=== PATIENT | female | born 1985 | race Caucasian/White ===

== ENCOUNTER 2018-07-06 12:04 | Emergency (ER) | payer OTHER ==
--- NOTE | 2018-07-06 12:16 | ED.PDOC ---
History of Present Illness - General Chief Complaint: Upper Extremity Injury Stated Complaint: pain index finger left Time Seen by Provider: 07/06/18 12:15 Source: patient Exam Limitations: no limitations - History of Present Illness Initial Comments: Emili Williamson 32 y/o female stated that she was pushing table and accidentally slammed left index finger between table.Noted pain /swelling left index er after the incident and pain bending finger feels tight. Occurred: just prior to arrival Pain - Upper Extremity: moderate: Hand, left - index finger Method of Injury: other - see hpi Improving Factors: rest Worsening Factors: movement Allergies/Adverse Reactions: Allergies Barium Allergy (Verified 09/26/14 15:26) Home Medications: Ambulatory Orders Clonazepam 1 mg PO BID 09/26/14 Gabapentin 600 mg PO QID 09/26/14 Mesalamine [Asacol] 800 mg PO TID 09/26/14 tiZANidine [Zanaflex] 4 mg PO TID 09/26/14 Tramadol HCl 50 mg PO TID PRN #14 tab 07/06/18 Review of Systems - Review of Systems Constitutional: States: no symptoms reported EENTM: States: no symptoms reported Respiratory: States: no symptoms reported Cardiology: States: no symptoms reported Gastrointestinal/Abdominal: States: no symptoms reported Genitourinary: States: no symptoms reported Musculoskeletal: States: see HPI Skin: States: no symptoms reported Neurological: States: no symptoms reported Past Medical History (General) - Patient Medical History Hx Stroke: No Hx of COPD: No Hx Hypertension: No Hx Diabetes: No Hx Other PMH: Yes - Crohns disease,RSD,Thoracic outlet syndome Surgical History: cholecystectomy, tonsillectomy, other - rib resection,skin grafting - Vaccination History Hx Influenza Vaccination: No - Social History Hx Tobacco Use: Yes Years Tobacco Use: 3 Cigarettes Packs Per Day: 10 Hx Chewing Tobacco Use: No Hx Alcohol Use: No Hx Physical Abuse: No Hx Emotional Abuse: No - Activities of Daily Living Patient Lives Alone: No Family Medical History - Family History Mother Family History: No Known Living Status: Still Living Hx Family Hypertension: Yes Hx Family Stroke: Yes - mom Hx Family;Other: Rheumatoid arthritis Physical Exam - Physical Exam General Appearance: Alert, Comfortable, No apparent distress Eyes, Ears, Nose, Throat Exam: normal ENT inspection Neck: non-tender, full range of motion, normal inspection Cardiovascular/Respiratory: regular rate, rhythm, no M/R/G, normal peripheral pulses, normal breath sounds Abdominal Exam: non-tender, no organomegaly Back Exam: no CVA tenderness, no vertebral tenderness Shoulder Exam: no evidence of injury Elbow/Forearm Exam: no evidence of injury Wrist Exam: no evidence of injury Hand Exam: bone tenderness - left index finger, limited ROM - left index finger , soft tissue tenderness - left index finger, swelling - left index finger Neuro/Tendon: normal sensation, normal motor functions, normal tendon functions , responds to pain Mental Status: alert, oriented x 3 Skin Exam: normal color, warm/dry Progress - Progress Progress: 07/06/18 12:36 Vital Signs - 8 hr 07/06/18 12:17 Temperature 97.9 F Pulse Rate [ 106 H montior] Respiratory 20 Rate Blood Pressure 151/86 [ra] O2 Sat by Pulse 97 Oximetry - EKG/XRAY/CT XRAY: index finger -no fracture Departure - Departure Clinical Impression: Swelling of index finger Contusion of index finger without damage to nail Qualifiers: Encounter type: initial encounter Laterality: left Qualified Code(s): S60.022A - Contusion of left index finger without damage to nail, initial encounter Time of Disposition: 13:09 Disposition: Discharge to Home or Self Care Departure Forms: ED Discharge - Pt. Copy, Patient Portal Self Enrollment Instructions: Contusion (DC) Prescriptions: Tramadol HCl 50 mg PO TID PRN #14 tab PRN Reason: Pain Home Medications: Ambulatory Orders Clonazepam 1 mg PO BID 09/26/14 Gabapentin 600 mg PO QID 09/26/14 Mesalamine [Asacol] 800 mg PO TID 09/26/14 tiZANidine [Zanaflex] 4 mg PO TID 09/26/14 Tramadol HCl 50 mg PO TID PRN #14 tab 07/06/18 Additional Instructions: Continue with ice pack 10 minute 3 x a day during waking hours only for 3 days
[2018-07-06 12:21] VITALS: TEMP 97.9; O2SAT 97
--- NOTE | 2018-07-06 13:07 | RAD ---
EXAM DESCRIPTION: Fingers,Left CLINICAL HISTORY: 32 years Female, LEFT INDEX FINGER PAIN COMPARISON: None. FINDINGS: Three views of the left index finger show soft tissue swelling proximally without acute fracture or malalignment. No radiopaque foreign body or soft tissue gas. IMPRESSION: Soft tissue swelling, otherwise unremarkable exam. Electronically signed by: Timoteo Miller MD 07/06/2018 1:05 PM CDT
[2018-07-06 13:24] VITALS: BP 141/82
== END 2018-07-06 13:24 | disposition home or self-care (01) ==
LOC: ER 12:04
DX: S60.022A Contusion of left index finger without damage to nail, initial encounter (principal); W23.0XXA Caught, crushed, jammed, or pinched between moving objects, initial encounter; Z87.891 Personal history of nicotine dependence; Z88.8 Allergy status to other drugs, medicaments and biological substances; Y99.0 Civilian activity done for income or pay; Y92.69 Other specified industrial and construction area as the place of occurrence of the external cause

== ENCOUNTER → 2019-04-10 | Outpatient (CLI) | payer BC | LOC: LAB.O 12:24 | PROVIDERS: ATTEND Obstetrics & Gynecology | DX: E28.2 Polycystic ovarian syndrome (principal) ==

== ENCOUNTER → 2019-05-14 | Outpatient (CLI) | payer BC | LOC: LAB.O 11:09 | PROVIDERS: ATTEND Obstetrics & Gynecology | DX: N92.6 Irregular menstruation, unspecified (principal) ==